=== PATIENT | female | born 1995 | race Caucasian/White ===

== ENCOUNTER 2017-03-17 13:15 | Emergency (ER) | payer SELFPAY ==
[~2017-03-17] VITALS: Ht 157.5 cm; Wt 50.0 kg
[~2017-03-17 13:15] MED LIST: NEXP68IM ID
[2017-03-17 13:16] VITALS: BP 101/62; PULSE 78; RESP 16; TEMP 98.2; O2SAT 98
[2017-03-17] MEDS ORDERED: ETON1IMP I-DERMAL (13:44)
--- NOTE | 2017-03-17 13:52 | PD ---
HPI Chief Complaint: Coffee Taster Problem/Complaint Time Seen by Provider: 13:49 Travel History International Travel<30 days: No Contact w/Intl Traveler<30days: No Traveled to known affect area: No History of Present Illness HPI 21-year-old female presents to the emergency department concerned of heavy vaginal bleeding. Patient states she has a control implant in her left upper arm. She states she normally will have only a day or 2 of spotting. However, she has had heavier vaginal bleeding for the past 4 days. She cannot tell me how often she is changing her tampon or pad. She states that for sutures using any way nurse, but then does would not work. She states the bleeding is when she wipes. The patient does appear well and exam. She states she got that [facility] approximately 2 [facility]. She called them and they were concerned of her vaginal bleeding and that she may have "a hormonal imbalance" and sent her to the emergency department. The patient states she took a test yesterday and it was negative. She has no chronic medical problems and takes no prescribed medications. PFSH Past Medical History ?: Not LMP: 2012 Social History Alcohol Use: Yes Tobacco Use: No Substance Use: No Allergies-Medications (Allergen,Severity, Reaction): Coded Allergies: No Known Allergies (Unverified , 03/17/17) Reported Meds & Prescriptions Reported Meds & Active Scripts Active Reported Nexplanon Implant (Etonogestrel Implant) 68 Mg Imp 68 Mg I-DERMAL ONCE Review of Systems Except as stated in HPI: all other systems reviewed are Neg Physical Exam Narrative GENERAL: Well-nourished, well-developed female patient, ambulatory. Afebrile. SKIN: Focused skin assessment warm/dry. HEAD: Normocephalic. Atraumatic. EYES: No scleral icterus. No injection or drainage. NECK: Supple, trachea midline. No JVD or lymphadenopathy. CARDIOVASCULAR: Regular rate and rhythm without murmurs, gallops, or rubs. RESPIRATORY: Breath sounds equal bilaterally. No accessory muscle use. Lungs sounds are clear to auscultation. GASTROINTESTINAL: Abdomen soft, non-tender, nondistended. No pelvic or abdominal pain to palpation. MUSCULOSKELETAL: No cyanosis, or edema. BACK: Nontender without obvious deformity. No CVA tenderness. GENITOURINARY: Normal external genitalia without lesions or erythema. Vaginal vault with blood noted. No cervical motion tenderness. Uterus nontender and nonenlarged. Bilateral adnexa nontender without masses this exam was done with Pk RN, at bedside.. Data Data Last Documented VS Vital Signs Date Time Temp Pulse Resp B/P Pulse Ox O2 Delivery O2 Flow Rate FiO2 03/17/17 13:16 98.2 78 16 101/62 98 Orders Complete Blood Count With Diff (03/17/17 13:47) Basic Metabolic Panel (Bmp) (03/17/17 13:47) Urinalysis - C+S If Indicated (03/17/17 13:47) Ed Urine Pregnancytest Poc (03/17/17 13:47) Sodium Chlor 0.9% 1000 Ml Inj (Ns 1000 M (03/17/17 14:00) Ondansetron Inj (Zofran Inj) (03/17/17 14:00) Labs Laboratory Tests Test 03/17/17 03/17/17 14:05 14:15 White Blood Count 9.3 TH/MM3 Red Blood Count 4.67 MIL/MM3 Hemoglobin 13.9 GM/DL Hematocrit 40.5 % Mean Corpuscular Volume 86.7 FL Mean Corpuscular Hemoglobin 29.8 PG Mean Corpuscular Hemoglobin 34.4 % Concent Red Cell Distribution Width 13.5 % Platelet Count 231 TH/MM3 Mean Platelet Volume 8.2 FL Neutrophils (%) (Auto) 59.6 % Lymphocytes (%) (Auto) 30.7 % Monocytes (%) (Auto) 6.1 % Eosinophils (%) (Auto) 3.2 % Basophils (%) (Auto) 0.4 % Neutrophils # (Auto) 5.6 TH/MM3 Lymphocytes # (Auto) 2.9 TH/MM3 Monocytes # (Auto) 0.6 TH/MM3 Eosinophils # (Auto) 0.3 TH/MM3 Basophils # (Auto) 0.0 TH/MM3 CBC Comment DIFF FINAL Differential Comment Sodium Level 143 MEQ/L Potassium Level 3.7 MEQ/L Chloride Level 107 MEQ/L Carbon Dioxide Level 29.9 MEQ/L Anion Gap 6 MEQ/L Blood Urea Nitrogen 8 MG/DL Creatinine 0.89 MG/DL Estimat Glomerular Filtration 80 ML/MIN Rate Random Glucose 80 MG/DL Calcium Level 8.7 MG/DL Urine Color YELLOW Urine Turbidity CLEAR Urine pH 6.5 Urine Specific [place] 1.029 Urine Protein TRACE mg/dL Urine Glucose (UA) NEG mg/dL Urine Ketones NEG mg/dL Urine Occult Blood NEG Urine Nitrite NEG Urine Bilirubin NEG Urine Urobilinogen LESS THAN 2.0 MG/DL Urine Leukocyte Esterase NEG Urine WBC LESS THAN 1 /hpf Urine Squamous Epithelial 1 /hpf Cells Urine Mucus FEW /lpf Microscopic Urinalysis Comment CULT NOT INDICATED MDM Medical Decision Making Medical Screen Exam Complete: Yes Emergency Medical Condition: Yes Medical Record Reviewed: Yes Differential Diagnosis Dysmenorrhea versus anemia versus UTI Narrative Course 21-year-old female presents to the emergency department for evaluation of heavy or vaginal bleeding for the past 4 days. She has a control implant and states this is not typical for her. She does appear well and exam. IV access established. CBC, BMP, UA, urine test ordered and pending. Patient gives verbal consent for pelvic exam to evaluate amount of bleeding. She is in a monogamous relationship with her denies any abnormal vaginal discharge. Patient is given normal saline 1 L IV bolus, Zofran 4 mg IV. CBC is unremarkable. BMP is unremarkable. UA is negative for acute infection. UPT is negative. Laboratory findings and physical exam findings are reassuring. Patient is instructed to follow-up with her fbi profiler. She is to return here for any acute worsening of symptoms. She verbalizes agreement and understanding. The patient was discharged in stable condition with instructions, including return instructions and follow up instructions. Diagnosis Primary Impression: Menorrhagia Qualified Code: N92.0 - Menorrhagia with regular cycle Referrals: Machine Sorter call for appointment Patient Instructions: General Instructions, Menorrhagia (ED) Additional Instructions: [id number] Tylenol every 4 hours as needed, [id number] ibuprofen every 6-8 hours as needed. Follow-up with your fbi profiler. Return to the emergency department for any acute worsening of symptoms. Med/Other Pt SpecificInfo: No Change to Meds Disposition: 01 DISCHARGE HOME Condition: Stable Karen Jacobson AMITA Mar 17, 2017 13:52
[2017-03-17] MEDS ORDERED: ONDANSETRON HCL 4 MG/2 ML VIAL IV PUSH ONE (14:00)
[2017-03-17] MEDS ORDERED: SODIUM CHLOR 0.9% 1000 ML INJ 1,000 ML IV ONE (14:00)
[2017-03-17 14:19] LABS: AUTOMATED NEUTROPHIL # 5.6 TH/MM3 (1.8-7.7); BASOPHIL % 0.4 % (0.0-2.0); EOSINOPHIL # 0.3 TH/MM3 (0-0.4); EOSINOPHIL % 3.2 % (0.0-4.0); HEMATOCRIT 40.5 % (35.0-46.0); HEMO FLAGS DIFF FINAL; LYMPH % 30.7 % (9.0-44.0); LYMPHOCYTE # 2.9 TH/MM3 (1.0-4.8); MEAN CELL VOLUME 86.7 FL (80.0-100.0); MEAN CORPUSCULAR HEMOGLOBIN 29.8 PG (27.0-34.0); MEAN CORPUSCULAR HGB CONC 34.4 % (32.0-36.0); MONO % 6.1 % (0.0-8.0); NEUT % 59.6 % (16.0-70.0); PLATELET COUNT 231 TH/MM3 (150-450); RED BLOOD COUNT 4.67 MIL/MM3 (4.00-5.30); RED CELL DISTRIBUTION WIDTH 13.5 % (11.6-17.2); WHITE BLOOD COUNT 9.3 TH/MM3 (4.0-11.0)
[2017-03-17 14:39] LABS: BICARBONATE 29.9 MEQ/L (21.0-32.0); POTASSIUM 3.7 MEQ/L (3.5-5.1)
[2017-03-17 14:55] LABS: BLOOD, URINE NEG (NEG); COMMENT (UR) CULT NOT INDICATED; CULTURE IF INDICATED CULT NOT INDICATED; GLUCOSE,URINE NEG (NEG); KETONE, URINE NEG (NEG); MUCUS URINE FEW /lpf (OCC); NITRITE,URINE NEG (NEG); PH, URINE 6.5 (5.0-8.5); SQUAMOUS EPITHELIAL CELL URINE 1 /hpf (0-5); URINE COLOR YELLOW (YELLW/STRAW)
== END 2017-03-17 16:19 | disposition home or self-care (01) ==
LOC: NEPD 13:15
DX: N92.0 Excessive and frequent menstruation with regular cycle (principal)
CPT/HCPCS: 80048; 81001; 84703; 85025; 96374; 99284; J2405; J7030